=== PATIENT | male | born 1950 | race Caucasian/White ===

== ENCOUNTER 2016-10-17 14:55 | Emergency (ER) | payer SELFPAY ==
[~2016-10-17] VITALS: Ht 167.6 cm; Wt 89.0 kg
[~2016-10-17 14:55] MED LIST: BACL10TA PO; METF500T PO
[2016-10-17 14:59] VITALS: BP 194/94; PULSE 84; RESP 17; TEMP 98.3; O2SAT 94
[2016-10-17] MEDS ORDERED: SODIUM CHLORIDE 0.9% FLUSH 5 ML FLUSH IVF PRN (15:15)
[2016-10-17] MEDS ORDERED: SODIUM CHLOR 0.9% 1000 ML INJ 1,000 ML IV ONE (15:15)
[2016-10-17] MEDS ORDERED: methylPREDNISolone SOD SUCC 125 MG/2 ML VIAL IVP ONE (15:15)
--- NOTE | 2016-10-17 15:17 | PD ---
HPI Chief Complaint: Respiratory Symptoms Time Seen by Provider: 15:05 Travel History International Travel<30 days: No Contact w/Intl Traveler<30days: No Traveled to known affect area: No History of Present Illness HPI Patient is a 66-year-old male with history of hypertension, diabetes, COPD, presents to emergency room with complaints of cough, congestion, possible COPD exacerbation. Patient reports that for the past week, he has been coughing, reports that his cough has become increasingly productive of thick sputum. Patient reports that he has been wheezing as well, he has been using his albuterol treatments without any relief of symptoms. Reports that he has also been having myalgias, reports no sick contacts. Patient reports that he did not receive the flu vaccine this year. Reports no recent travels or trips. Patient reports that he has had no fevers, reports that he has been having chills. Denies chest pain or shortness of breath. PFSH Past Medical History Cardiovascular Problems: Yes (HTN) Diabetes: Yes Respiratory: Yes (COPD) Social History Alcohol Use: No Tobacco Use: No Substance Use: No Allergies-Medications (Allergen,Severity, Reaction): Coded Allergies: No Known Allergies (Verified , 10/17/16) Reported Meds & Prescriptions Reported Meds & Active Scripts Active Proair Hfa 8.5 GM Inh (Albuterol Sulfate) 90 Mcg/Act Aer 2 Puff INH Q4-6H PRN 108 mcg/actuation Prednisone 20 Mg Tab 20 Mg PO BID 5 Days Reported Metformin (Metformin HCl) 500 Mg Tab 500 Mg PO BIDPC With meals Review of Systems General / Constitutional: No: Fever Eyes: No: Visual changes HENT: No: Headaches Cardiovascular: No: Chest Pain or Discomfort Respiratory: Positive: Cough, Shortness of Breath, Wheezing Gastrointestinal: No: Abdominal Pain Genitourinary: No: Dysuria Musculoskeletal: Positive: Myalgias, No: Pain Skin: No Rash Neurologic: No: Weakness Psychiatric: No: Depression Endocrine: No: Polydipsia Hematologic/Lymphatic: No: Easy Bruising Physical Exam Narrative GENERAL: nad, nontoxic SKIN: Warm and dry. HEAD: Atraumatic. Normocephalic. EYES: Pupils equal and round. No scleral icterus. No injection or drainage. ENT: No nasal bleeding or discharge. Mucous membranes pink and moist. NECK: Trachea midline. No JVD. CARDIOVASCULAR: Regular rate and rhythm. No murmur appreciated. RESPIRATORY: No accessory muscle use. Patient with expiratory wheezing to the upper lobes of lungs GASTROINTESTINAL: Abdomen soft, non-tender, nondistended. Hepatic and splenic margins not palpable. MUSCULOSKELETAL: No obvious deformities. No clubbing. No cyanosis. No edema. NEUROLOGICAL: Awake and alert. No obvious cranial nerve deficits. Motor grossly within normal limits. Normal speech. PSYCHIATRIC: Appropriate mood and affect; insight and judgment normal. Data Data Last Documented VS Vital Signs Date Time Temp Pulse Resp B/P Pulse Ox O2 Delivery O2 Flow Rate FiO2 10/17/16 15:49 86 18 169/75 98 Aerosol Mask 10/17/16 14:59 98.3 Orders Complete Blood Count With Diff (10/17/16 15:10) Comprehensive Metabolic Panel (10/17/16 15:10) B-Type Natriuretic Peptide (10/17/16 15:10) Act Partial Throm Time (Ptt) (10/17/16 15:10) Prothrombin Time / Inr (Pt) (10/17/16 15:10) Urinalysis - C+S If Indicated (10/17/16 15:10) Influenzae A/B Antigen (10/17/16 15:10) Iv Access Insert/Monitor (10/17/16 15:10) Electrocardiogram (10/17/16 15:10) Oximetry (10/17/16 15:10) Chest, Single Ap (10/17/16 15:10) Sodium Chloride 0.9% Flush (Ns Flush) (10/17/16 15:15) Methylprednisolone So Succ Inj (Solumedr (10/17/16 15:15) Albuterol-Ipratropium Neb (Duoneb Neb) (10/17/16 15:15) Sodium Chlor 0.9% 1000 Ml Inj (Ns 1000 M (10/17/16 15:15) Labs Laboratory Tests Test 10/17/16 10/17/16 15:40 16:45 White Blood Count 3.7 TH/MM3 Red Blood Count 4.48 MIL/MM3 Hemoglobin 14.1 GM/DL Hematocrit 39.7 % Mean Corpuscular Volume 88.7 FL Mean Corpuscular Hemoglobin 31.4 PG Mean Corpuscular Hemoglobin 35.4 % Concent Red Cell Distribution Width 13.3 % Platelet Count 174 TH/MM3 Mean Platelet Volume 8.4 FL Neutrophils (%) (Auto) 44.6 % Lymphocytes (%) (Auto) 41.1 % Monocytes (%) (Auto) 13.1 % Eosinophils (%) (Auto) 0.5 % Basophils (%) (Auto) 0.7 % Neutrophils # (Auto) 1.6 TH/MM3 Lymphocytes # (Auto) 1.5 TH/MM3 Monocytes # (Auto) 0.5 TH/MM3 Eosinophils # (Auto) 0.0 TH/MM3 Basophils # (Auto) 0.0 TH/MM3 CBC Comment DIFF FINAL Differential Comment Prothrombin Time 10.4 SEC Prothromb Time International 0.9 RATIO Ratio Activated Partial 30.8 SEC Thromboplast Time Sodium Level 136 MEQ/L Potassium Level 4.2 MEQ/L Chloride Level 100 MEQ/L Carbon Dioxide Level 26.7 MEQ/L Anion Gap 9 MEQ/L Blood Urea Nitrogen 22 MG/DL Creatinine 1.17 MG/DL Estimat Glomerular Filtration 63 ML/MIN Rate Random Glucose 127 MG/DL Calcium Level 8.7 MG/DL Total Bilirubin 0.3 MG/DL Aspartate Amino Transf 49 U/L (AST/SGOT) Alanine Aminotransferase 54 U/L (ALT/SGPT) Alkaline Phosphatase 67 U/L B-Type Natriuretic Peptide 3 PG/ML Total Protein 7.8 GM/DL Albumin 3.9 GM/DL Urine Color YELLOW Urine Turbidity CLEAR Urine pH 5.5 Urine Specific [place] 1.021 Urine Protein TRACE mg/dL Urine Glucose (UA) NEG mg/dL Urine Ketones NEG mg/dL Urine Occult Blood NEG Urine Nitrite NEG Urine Bilirubin NEG Urine Urobilinogen LESS THAN 2.0 MG/DL Urine Leukocyte Esterase NEG Urine RBC 1 /hpf Urine WBC 1 /hpf Urine Mucus FEW /lpf Microscopic Urinalysis Comment CULT NOT INDICATED MDM Medical Decision Making Medical Screen Exam Complete: Yes Emergency Medical Condition: Yes Interpretation(s) EKG: NSR at 90bpm, qt/qtc: 388/436, no st or t wave changes Vital Signs Date Time Temp Pulse Resp B/P Pulse Ox O2 Delivery O2 Flow Rate FiO2 10/17/16 14:59 98.3 84 17 194/94 94 Differential Diagnosis Pneumonia, influenza, COPD exacerbation, pneumothorax, viral syndrome Narrative Course Patient is a 66-year-old male who presents to emergency room with complaints of cough congestion, COPD exacerbation. Patient reports that symptoms began 1 week ago, reports no fevers, reports chills. Patient reports productive cough with increased wheezing which is not improving with albuterol treatments. Patient overall nontoxic and evaluation. Patient does have some expiratory wheezing on exam. Patient with history of COPD. Will give patient solumedrol 125 mg IV as well as neb treatments. X-ray chest of chest ordered for evaluation of possible pneumonia. Will check for influenza as pt does report myalgia's and patient did not receive flu vaccination today CBC & BMP Diagram 10/17/16 15:40 Last Impressions Chest X-Ray 10/17/16 1510 Signed Impressions: Service Date/Time: Monday, October 17, 2016 15:30 - CONCLUSION: Normal examination for a patient of this age. Yinka Hadley MD Microbiology Date/Time Procedure Status Source Growth 10/17/16 15:40 Influenza Types A,B Antigen ([facility]) - Final Complete Nasal Aspirate Positive For Flu A Antigen Patient reevaluated. Patient with positive influenza A with COPD exacerbation. All labs and all studies reviewed with patient detail. Patient will follow- up with his primary care doctor and return to ER as needed. Diagnosis Primary Impression: Influenza A Additional Impression: COPD exacerbation Patient Instructions: General Instructions Additional Instructions: Please provide patient with a copy of his studies at discharge Please follow-up with your primary care doctor Please return to the emergency room as needed Please make sure you drink plenty of fluids Take Tylenol or ibuprofen for fever Med/Other Pt SpecificInfo: Prescription(s) given Scripts Albuterol 8.5 GM Inh (Proair Hfa 8.5 GM Inh)90 Mcg/Act Aer2 Puff INH Q4-6H PRN ( SHORTNESS OF BREATH) #1 INHALER Ref 0 108 mcg/actuation Prov:Keily Manuel DO 10/17/16 Prednisone 20 Mg Tab20 Mg PO BID 5 Days Ref 0 Prov:Keily Manuel DO 10/17/16 Disposition: 01 DISCHARGE HOME Condition: Stable Keily Manuel DO Oct 17, 2016 15:17
[2016-10-17] MEDS: RESP: ALBUTEROL 2.5 MG/IPRATROPIUM 0.5 MG NEB (SCH) INH ×2 (15:28→15:29)
[2016-10-17 15:48] VITALS: RESP 18; O2SAT 96
[2016-10-17 15:49] VITALS: BP 169/75; PULSE 86; RESP 18; O2SAT 98
[2016-10-17 16:08] LABS: AUTOMATED NEUTROPHIL # 1.6 TH/MM3 (1.8-7.7); BASOPHIL % 0.7 % (0.0-2.0); EOSINOPHIL % 0.5 % (0.0-4.0); HEMATOCRIT 39.7 % (39.0-51.0); HEMO FLAGS DIFF FINAL; LYMPH % 41.1 % (9.0-44.0); LYMPHOCYTE # 1.5 TH/MM3 (1.0-4.8); MEAN CELL VOLUME 88.7 FL (80.0-100.0); MEAN CORPUSCULAR HEMOGLOBIN 31.4 PG (27.0-34.0); MEAN CORPUSCULAR HGB CONC 35.4 % (32.0-36.0); MONO % 13.1 % (0.0-8.0); NEUT % 44.6 % (16.0-70.0); PLATELET COUNT 174 TH/MM3 (150-450); RED BLOOD COUNT 4.48 MIL/MM3 (4.50-5.90); RED CELL DISTRIBUTION WIDTH 13.3 % (11.6-17.2); WHITE BLOOD COUNT 3.7 TH/MM3 (4.0-11.0)
[2016-10-17 16:20] LABS: APTT (PATIENT) 30.8 SEC (24.3-30.1); INTERNATIONAL NORMALIZED RATIO 0.9 RATIO; PROTHROMBIN TIME - PATIENT 10.4 SEC (9.8-11.6)
--- NOTE | 2016-10-17 16:28 | RADRPT ---
EXAM DATE/TIME: 10/17/2016 15:30 [facility] COMPARISON: No previous studies available for comparison. INDICATIONS : Short of breath. MEDICAL HISTORY : Chronic obstructive pulmonary disease. Patient has had a bad cough for the last few days. SURGICAL HISTORY : None. ENCOUNTER: Initial ACUITY: 3 days PAIN SCORE: 6/10 LOCATION: Bilateral chest FINDINGS: A single view of the chest demonstrates the lungs to be symmetrically aerated without evidence of mas s, infiltrate or effusion. The cardiomediastinal contours are unremarkable. Osseous structures are intact. CONCLUSION: Normal examination for a patient of this age. Yinka Hadley MD on October 17, 2016 at 16:26 Board Certified Radiologist. This report was verified electronically.
[2016-10-17 16:30] LABS: ALT (GPT) 54 U/L (12-78); ANION GAP 9 MEQ/L (5-15); AST (GOT) 49 U/L (15-37); BICARBONATE 26.7 MEQ/L (21.0-32.0); BLOOD UREA NITROGEN 22 MG/DL (7-18); CHLORIDE 100 MEQ/L (98-107); GLOMERULAR FILTRATION RATE 63 ML/MIN (>89); POTASSIUM 4.2 MEQ/L (3.5-5.1); SODIUM (NA) 136 MEQ/L (136-145)
[2016-10-17 16:32] LABS: ALKALINE PHOSPHATASE 67 U/L (45-117); TOTAL BILIRUBIN ADULT 0.3 MG/DL (0.2-1.0)
[2016-10-17 17:14] LABS: BLOOD, URINE NEG (NEG); COMMENT (UR) CULT NOT INDICATED; CULTURE IF INDICATED CULT NOT INDICATED; GLUCOSE,URINE NEG (NEG); KETONE, URINE NEG (NEG); MUCUS URINE FEW /lpf (OCC); NITRITE,URINE NEG (NEG); PH, URINE 5.5 (5.0-8.5); URINE COLOR YELLOW (YELLW/STRAW)
[2016-10-17] MEDS ORDERED: PRED20 PO (17:26)
[2016-10-17] MEDS ORDERED: ALBUAER3 INH (17:26)
[2016-10-17 18:35] VITALS: BP 150/69
--- NOTE | 2016-10-18 12:34 | EKG ---
Date Performed: 10/17/2016 Time Performed: 15:36:55 PTAGE: 66 years EKG: Sinus rhythm Since previous tracing, no significant change noted NORMAL ECG PREVIOUS TRACING : 04/12/2011 14.45 DOCTOR: Franklin Krishnan Interpretating Date/Time 10/18/2016 12:33:35
== END 2016-10-17 18:37 | disposition home or self-care (01) ==
LOC: NEPC 14:55
DX: J09.X2 Influenza due to identified novel influenza A virus with other respiratory manifestations (principal); J44.1 Chronic obstructive pulmonary disease with (acute) exacerbation; I10 Essential (primary) hypertension; E11.9 Type 2 diabetes mellitus without complications; Z79.84 Long term (current) use of oral hypoglycemic drugs
CPT/HCPCS: 71010; 80053; 81001; 83880; 85025; 85610; 85730; 87804; 93005; 94640; 94664; 96361; 96374; 99284; J2930; J7030

== ENCOUNTER 2018-02-13 01:33 | Emergency (ER) | payer MEDICARE, OTHER ==
[~2018-02-13 01:33] MED LIST changes: +ALBUAER3 INH; -BACL10TA PO; +PRED20 PO
[2018-02-13 01:35] VITALS: BP 174/94; PULSE 87; RESP 18; TEMP 98.3; O2SAT 97
[2018-02-13] MEDS ORDERED: SODIUM CHLORIDE 0.9% FLUSH 10 ML FLUSH IVF PRN (02:00)
[2018-02-13] MEDS ORDERED: methylPREDNISolone SOD SUCC 125 MG/2 ML VIAL IV PUSH ONE (02:00)
[2018-02-13 02:10] VITALS: O2SAT 97
[2018-02-13] MEDS: RESP: ALBUTEROL 2.5 MG/IPRATROPIUM 0.5 MG NEB (SCH) INH (02:11)
--- NOTE | 2018-02-13 02:12 | PD ---
HPI Chief Complaint: Respiratory Distress Time Seen by Provider: 01:58 Travel History International Travel<30 days: No Contact w/Intl Traveler<30days: No History of Present Illness HPI 68-year-old male with history of COPD asthma presents to the emergency department for 1 week of progressively worsening shortness of breath. Patient does not have nebulizers at home patient also has history of hypertension and borderline diabetes. Patient denies any fever chills but has a cough productive of yellow sputum. Patient denies history of environmental allergies or seasonal allergies. No report of chest pain or referred neck jaw back shoulder arm or abdominal pain. Patient states due to progressive wheezing decided to present to the emergency department for evaluation. Patient denies tobacco use. PFSH Past Medical History Narrative Medical COPD hypertension dyslipidemia diabetes; no tobacco use; nursing notes reviewed Cardiovascular Problems: Yes (HTN) COPD: Yes Diabetes: Yes Patient Takes Glucophage: Yes Diminished Hearing: No Hypertension: Yes Respiratory: Yes (copd) Past Surgical History Surgical History: No Previous Surgery Social History Alcohol Use: No Tobacco Use: No Substance Use: No Allergies-Medications (Allergen,Severity, Reaction): Coded Allergies: codeine (Verified Adverse Reaction, Intermediate, Nausea/Vomiting, 02/13/18) Reported Meds & Prescriptions Reported Meds & Active Scripts Active Reported Losartan (Losartan Potassium) 25 Mg Tab 25 Mg PO DAILY Metformin (Metformin HCl) 500 Mg Tab 500 Mg PO BIDPC With meals Review of Systems Except as stated in HPI: all other systems reviewed are Neg Physical Exam Narrative GENERAL: Well-developed well-nourished male and mild respiratory distress SKIN: Warm and dry. HEAD: Normocephalic. EYES: No scleral icterus. No injection or drainage. NECK: Supple, trachea midline. No JVD or lymphadenopathy. CARDIOVASCULAR: Regular rate and rhythm without murmurs, gallops, or rubs. RESPIRATORY: Breath sounds equal bilaterally diffuse wheezing throughout. No accessory muscle use. GASTROINTESTINAL: Abdomen soft, non-tender, nondistended. MUSCULOSKELETAL: No cyanosis, or edema. BACK: Nontender without obvious deformity. No CVA tenderness. Data Data Last Documented VS Vital Signs Date Time Temp Pulse Resp B/P (MAP) Pulse Ox O2 Delivery O2 Flow Rate FiO2 02/13/18 03:22 20 99 Room Air 02/13/18 02:10 21 02/13/18 01:35 98.3 87 174/94 (120) Orders Orders Complete Blood Count With Diff (02/13/18 01:58) Basic Metabolic Panel (Bmp) (02/13/18 01:58) Magnesium (Mg) (02/13/18 01:58) Iv Access Insert/Monitor (02/13/18 01:58) Ecg Monitoring (02/13/18 01:58) Oximetry (02/13/18 01:58) Oxygen Administration (02/13/18 01:58) Chest, Single Ap (02/13/18 01:58) Sodium Chloride 0.9% Flush (Ns Flush) (02/13/18 02:00) Methylprednisolone So Succ Inj (Solumedr (02/13/18 02:00) Albuterol-Ipratropium Neb (Duoneb Neb) (02/13/18 02:00) Sodium Chlor 0.9% 1000 Ml Inj (Ns 1000 M (02/13/18 03:30) Ed Discharge Order (02/13/18 04:30) Labs Laboratory Tests Test 02/13/18 02:20 White Blood Count 5.8 TH/MM3 Red Blood Count 4.48 MIL/MM3 Hemoglobin 14.2 GM/DL Hematocrit 39.9 % Mean Corpuscular Volume 89.2 FL Mean Corpuscular Hemoglobin 31.6 PG Mean Corpuscular Hemoglobin Concent 35.5 % Red Cell Distribution Width 13.5 % Platelet Count 196 TH/MM3 Mean Platelet Volume 8.5 FL Neutrophils (%) (Auto) 42.2 % Lymphocytes (%) (Auto) 43.5 % Monocytes (%) (Auto) 10.0 % Eosinophils (%) (Auto) 3.4 % Basophils (%) (Auto) 0.9 % Neutrophils # (Auto) 2.5 TH/MM3 Lymphocytes # (Auto) 2.5 TH/MM3 Monocytes # (Auto) 0.6 TH/MM3 Eosinophils # (Auto) 0.2 TH/MM3 Basophils # (Auto) 0.1 TH/MM3 CBC Comment DIFF FINAL Differential Comment Blood Urea Nitrogen 18 MG/DL Creatinine 1.19 MG/DL Random Glucose 201 MG/DL Calcium Level 8.8 MG/DL Magnesium Level 2.1 MG/DL Sodium Level 142 MEQ/L Potassium Level 4.0 MEQ/L Chloride Level 104 MEQ/L Carbon Dioxide Level 29.2 MEQ/L Anion Gap 9 MEQ/L Estimat Glomerular Filtration Rate 61 ML/MIN MDM Medical Decision Making Medical Screen Exam Complete: Yes Emergency Medical Condition: Yes Medical Record Reviewed: Yes Interpretation(s) Last Impressions Chest X-Ray 02/13/18 0158 Signed Impressions: CONCLUSION: No acute cardiopulmonary process. CBC & BMP Diagram 02/13/18 02:20 Calcium Level 8.8, Magnesium Level 2.1 Vital Signs Date Time Temp Pulse Resp B/P (MAP) Pulse Ox O2 Delivery O2 Flow Rate FiO2 02/13/18 03:22 20 99 Room Air 02/13/18 03:21 97 Room Air 02/13/18 02:10 97 21 02/13/18 01:35 98.3 87 18 174/94 (120) 97 Differential Diagnosis Exacerbation COPD, bronchitis, pneumonia, CHF Narrative Course Patient administer DuoNeb updraft 3 as well as Solu-Medrol chest x-ray ordered specimens collected and sent for resulting At 4:30 AM lung sounds are clear patient is stable for outpatient management and close follow-up with his primary care provider imaging study reveals no acute infiltrate and lab values are found to be in normal range Patient is safe for outpatient management will be given prescription for rescue inhaler Medrol Dosepak and azithromycin for Diagnosis Primary Impression: COPD exacerbation Additional Impression: Bronchitis Referrals: Kai Garcia MD PhD call for appointment Patient Instructions: General Instructions Med/Other Pt SpecificInfo: Prescription(s) given Scripts Albuterol 18 GM Inh (Ventolin Hfa 18 GM Inh) 90 Mcg/Act Aer 2 PUFF INH Q4-6H Y for SHORTNESS OF BREATH, #1 INHALER 0 Refills Prov: Sharmaine Fletcher MD 02/13/18 Methylprednisolone Dosepak (Medrol Dosepak) 4 Mg Dspk 4 MG PO DIRECTED, #1 DSPK 0 Refills Per Pharmacist direction Prov: Sharmaine Fletcher MD 02/13/18 Azithromycin (Zithromax Z-Jer) 250 Mg Dspk 250 MG PO DIRECTED for Infection, #1 DSPK 0 Refills 500 MG (2 tabs) day 1, then 1 tab days 2-5. Prov: Sharmaine Fletcher MD 02/13/18 Disposition: 01 DISCHARGE HOME Condition: Stable Sharmaine Fletcher MD Feb 13, 2018 02:12
[2018-02-13] MEDS ORDERED: LOSA25TA PO (02:24)
[2018-02-13 02:52] LABS: AUTOMATED NEUTROPHIL # 2.5 TH/MM3 (1.8-7.7); BASOPHIL # 0.1 TH/MM3 (0-0.2); BASOPHIL % 0.9 % (0.0-2.0); EOSINOPHIL # 0.2 TH/MM3 (0-0.4); EOSINOPHIL % 3.4 % (0.0-4.0); HEMATOCRIT 39.9 % (39.0-51.0); HEMOGLOBIN 14.2 GM/DL (13.0-17.0); LYMPH % 43.5 % (9.0-44.0); LYMPHOCYTE # 2.5 TH/MM3 (1.0-4.8); MEAN CELL VOLUME 89.2 FL (80.0-100.0); MEAN CORPUSCULAR HEMOGLOBIN 31.6 PG (27.0-34.0); MEAN CORPUSCULAR HGB CONC 35.5 % (32.0-36.0); MEAN PLATELET VOLUME 8.5 FL (7.0-11.0); MONOCYTE # 0.6 TH/MM3 (0-0.9); NEUT % 42.2 % (16.0-70.0); PLATELET COUNT 196 TH/MM3 (150-450); RED BLOOD COUNT 4.48 MIL/MM3 (4.50-5.90); RED CELL DISTRIBUTION WIDTH 13.5 % (11.6-17.2); WHITE BLOOD COUNT 5.8 TH/MM3 (4.0-11.0)
--- NOTE | 2018-02-13 02:59 | RADRPT ---
EXAM DATE: 02/13/2018 2:21 AM EDT AGE/SEX: 68 years / Male INDICATIONS: Shortness of breath. CLINICAL DATA: This is the patient's initial encounter. Patient reports that signs and symptoms have been present for 3 days and indicates a pain score of 0/10. MEDICAL/SURGICAL HISTORY: Hypertension. Chronic obstructive pulmonary disease. Diabetes. None . COMPARISON: [facility] [place], CHEST SINGLE AP, 10/17/2016. . FINDINGS: A single AP view of the chest demonstrates the lungs to be symmetrically aerated without evidence of mass, infiltrate or effusion. The cardiomediastinal contours are unremarkable. Osseous structures a re intact. CONCLUSION: No acute cardiopulmonary process. Electronically signed by: Stevie Pham MD 02/13/2018 2:58 AM EDT
[2018-02-13 03:07] LABS: BICARBONATE 29.2 MEQ/L (21.0-32.0); CALCIUM 8.8 MG/DL (8.5-10.1); CREATININE 1.19 MG/DL (0.60-1.30); MAGNESIUM 2.1 MG/DL (1.5-2.5)
[2018-02-13 03:22] VITALS: RESP 20; O2SAT 99
[2018-02-13] MEDS ORDERED: SODIUM CHLOR 0.9% 1000 ML INJ 1,000 ML IV ONE (03:30)
[2018-02-13] MEDS ORDERED: VENTAER INH (04:32)
[2018-02-13] MEDS ORDERED: MEDR4PAK PO (04:32)
[2018-02-13] MEDS ORDERED: ZITHTAB PO (04:32)
== END 2018-02-13 04:58 | disposition home or self-care (01) ==
LOC: NEPC 01:33
DX: J44.1 Chronic obstructive pulmonary disease with (acute) exacerbation (principal); J40 Bronchitis, not specified as acute or chronic; I10 Essential (primary) hypertension; E11.9 Type 2 diabetes mellitus without complications; E78.5 Hyperlipidemia, unspecified; Z79.899 Other long term (current) drug therapy; Z88.5 Allergy status to narcotic agent
CPT/HCPCS: 71045; 80048; 83735; 85025; 94640; 94664; 96361; 96374; 99284; J2930; J7030